=== PATIENT | male | born 1995 | race American Indian/Alaskan Native ===

== ENCOUNTER 2019-09-16 19:58 | Emergency (ER) | payer MEDICAID, OTHER ==
--- NOTE | 2019-09-16 20:32 | EDM.PDOC ---
ED HPI GENERAL MEDICAL PROBLEM - General Chief Complaint: Upper Extremity Injury/Pain Stated Complaint: INJURED FINGER/RIGHT HAND Time Seen by Provider: 09/16/19 20:20 Source of Information: Reports: Patient, RN History Limitations: Reports: No Limitations - History of Present Illness INITIAL COMMENTS - FREE TEXT/NARRATIVE: 23 yo NA male presents with a R 4th finger injury from a few days ago. Has not been seen yet in the clinic. Comes now to the ER because "it is not getting better". No self tx. Onset: Sudden Onset Date: 09/13/19 Duration: Day(s): (3), Constant Location: Reports: Upper Extremity, Right Quality: Reports: Ache Severity: Moderate Improves with: Reports: None Worsens with: Reports: Movement Context: Reports: Trauma Associated Symptoms: Reports: No Other Symptoms Treatments [employer]: Reports: Other (see below) (none) Right Finger-Ring Pain Score (Numeric/FACES): 8 - Related Data Allergies Allergy/AdvReac Type Severity Reaction Status Date / Time No Known Allergies Allergy Verified 09/16/19 20:10 Home Meds: Home Meds NK [No Known Home Meds] 09/16/19 [History] Past Medical History Musculoskeletal History: Reports: Fracture Social & Family History - Tobacco Use Smoking Status *Q: Current Every Day Smoker Years of Tobacco use: 5 Packs/Tins Daily: 0.5 - Recreational Drug Use Recreational Drug Use: No Review of Systems - Review of Systems Review Of Systems: See Below Constitutional: Reports: No Symptoms Musculoskeletal: Reports: Hand Pain (R 4th finger) Skin: Reports: Bruising (R 4th finger) Neurological: Reports: No Symptoms ED EXAM, GENERAL - Physical Exam Exam: See Below Exam Limited By: No Limitations General Appearance: Alert, WD/WN, No Apparent Distress Extremities: Pedal Edema (R 4th finger is swollen), Limited Range of Motion ( due to pain and swelling of the R 4th finger). No: Non-Tender, No Pedal Edema, Increased Warmth, Redness Neurological: Alert, Oriented, Normal Cognition, No Motor/Sensory Deficits Psychiatric: Normal Affect, Normal Mood Skin Exam: Warm, Dry, Intact, Ecchymosis (R 4th finger) ED TRAUMA EXTREMITY PROCEDURES - Splinting Right 4th Digit Splint Site: R 4th finger Pre-Procedure NV Status: Normal Post-Procedure NV Status: Normal Splint Material: Metal Splint Design: Volar Applied & Form Fitted By: Provider Provider Post-Splint Application NV Check: NV Status Normal, Good Position Complications: No Course - Vital Signs Last Recorded V/S: Last Vital Signs Temp 36.7 C 09/16/19 20:12 Pulse 87 09/16/19 20:12 Resp 16 09/16/19 20:12 BP 133/60 09/16/19 20:12 Pulse Ox 98 09/16/19 20:12 - Orders/Labs/Meds Orders: Active Orders 24 hr Category Date Time Status Fingers Fourth Digit Rt F8 [CR] Stat Exams 09/16/19 20:27 Ordered - Radiology Interpretation Free Text/Narrative:: R 4th finger X-ray-Fx of the prox phalanx Departure - Departure Time of Disposition: 20:50 Disposition: Home, Self-Care 01 Condition: Fair Clinical Impression: Finger fracture, right Qualifiers: Encounter type: initial encounter Finger: ring finger Fracture type: closed Phalanx: proximal Fracture alignment: displaced Qualified Code(s): S62.614A - Displaced fracture of proximal phalanx of right ring finger, initial encounter for closed fracture - Discharge Information *PRESCRIPTION DRUG MONITORING PROGRAM REVIEWED*: No *COPY OF PRESCRIPTION DRUG MONITORING REPORT IN PATIENT ELLI: No Instructions: Finger Fracture, Adult, [id number] Referrals: PCP,None [Primary Care Provider] - Forms: ED Department Discharge Additional Instructions: Take acetaminophen 1000 mg every 6 hrs as needed for pain relief. Add ibuprofen 400 mg every 6 hrs for added relief. Keep elevated to reduce swelling. Follow up with Dr. Randall for further care, someone will call you with an appt to see him. Leave the splint on at all times. Sepsis Event Note - Evaluation Sepsis Screening Result: No Definite Risk - Focused Exam Vital Signs: Vital Signs Temp Pulse Resp BP Pulse Ox 09/16/19 20:12 36.7 C 87 16 133/60 98 09/16/19 20:09 36.7 C 87 16 133/60 98 Date Exam was Performed: 09/16/19 Time Exam was Performed: 20:38 - My Orders Last 24 Hours: My Active Orders 09/16/19 20:27 Fingers Fourth Digit Rt F8 [CR] Stat - Assessment/Plan Last 24 Hours: My Active Orders 09/16/19 20:27 Fingers Fourth Digit Rt F8 [CR] Stat
--- NOTE | 2019-09-17 10:02 | CR ---
Fingers Fourth Digit Rt F8 CLINICAL HISTORY: Injury FINDINGS: There is a displaced comminuted fracture of the midportion of the fourth proximal phalanx with dorsal angulation of the distal aspect. IMPRESSION: Angulated comminuted fracture of the fourth proximal phalanx
== END 2019-09-16 21:12 | disposition home or self-care (01) ==
LOC: JP.ED 19:58
DX: S62.614A Displaced fracture of proximal phalanx of right ring finger, initial encounter for closed fracture (principal); F17.210 Nicotine dependence, cigarettes, uncomplicated; X58.XXXA Exposure to other specified factors, initial encounter
CPT/HCPCS: 29130; 73140-26-F8; 73140-F8; 99283; 99283-25

== ENCOUNTER 2019-09-19 19:18 | Emergency (ER) | payer MEDICAID, OTHER ==
[2019-09-19] MEDS ORDERED: Ketorolac 60 MG/2 ML SDV IM ONE (20:05)
--- NOTE | 2019-09-19 20:28 | EDM.PDOC ---
ED HPI GENERAL MEDICAL PROBLEM - General Chief Complaint: Upper Extremity Injury/Pain Stated Complaint: INJURED RIGHT HAND Time Seen by Provider: 09/19/19 20:10 Source of Information: Reports: Patient History Limitations: Reports: No Limitations - History of Present Illness INITIAL COMMENTS - FREE TEXT/NARRATIVE: 23-year-old male with a finger injury. He was seen 3 days ago and diagnosed with a fracture of his ring finger on the right hand, he had an orthopedic appointment this morning but missed it. Last night he was so intoxicated he does not remember what happened but today his index finger is swollen, bruised, reddened, with a scrape across the dorsal aspect of the PIP joint and significant pain. Onset: Unknown/Unsure (Woke up with the injury this morning) Location: Reports: Upper Extremity, Right Associated Symptoms: Reports: No Other Symptoms Right Hand Pain Score (Numeric/FACES): 8 - Related Data Allergies Allergy/AdvReac Type Severity Reaction Status Date / Time No Known Allergies Allergy Verified 09/19/19 19:53 Home Meds: Home Meds NK [No Known Home Meds] 09/16/19 [History] Past Medical History Musculoskeletal History: Reports: Fracture Social & Family History - Tobacco Use Smoking Status *Q: Light Tobacco Smoker Years of Tobacco use: 5 Packs/Tins Daily: 0.5 - Caffeine Use Caffeine Use: Reports: None - Recreational Drug Use Recreational Drug Use: No Review of Systems - Review of Systems Review Of Systems: See Below Constitutional: Denies: Fever Respiratory: Reports: No Symptoms GI/Abdominal: Reports: No Symptoms Genitourinary: Reports: No Symptoms Skin: Reports: Bruising (Bruising and erythema is present around the right finger extending dorsally over the MP joint) ED EXAM, GENERAL - Physical Exam Exam: See Below Exam Limited By: No Limitations General Appearance: Alert, No Apparent Distress (Looks uncomfortable but not distressed) Head: Atraumatic Respiratory/Chest: No Respiratory Distress Extremities: Other (Exam is otherwise limited to the right hand. There is some bruising and slight deformity of the ring finger which has been present for the past 4 days. His index finger now is swollen, bruised with some underlying redness and a transverse superficial shallow laceration across the PIP joint. There is exquisite tenderness with any range of motion.) Course - Vital Signs Last Recorded V/S: Last Vital Signs Temp 99.1 F 09/19/19 19:37 Pulse 94 09/19/19 19:37 Resp 16 09/19/19 19:37 BP 159/81 H 09/19/19 19:37 Pulse Ox 98 09/19/19 19:37 - Orders/Labs/Meds Orders: Active Orders 24 hr Category Date Time Status Fingers Second Digit Rt F6 [CR] Stat Exams 09/19/19 20:08 Taken CULTURE WOUND + SMEAR [RM] Stat Lab 09/19/19 20:49 Results Meds: Medications Discontinued Medications Generic Name Dose Route Start Last Admin Trade Name Miguelq PRN Reason Stop Dose Admin Ceftazidime 1 gm/ Sodium 50 mls @ 100 mls/hr 09/19/19 20:38 09/19/19 20:58 Chloride IV 09/19/19 21:07 Not Given ONETIME ONE Ketorolac Tromethamine 60 mg 09/19/19 20:05 09/19/19 20:15 Toradol IM 09/19/19 20:06 60 mg ONETIME ONE Administration - Re-Assessments/Exams Free Text/Narrative Re-Assessment/Exam: 09/19/19 20:28 Patient was given 60 mg of Toradol IM and then sent back for a finger x-ray. 09/19/19 20:48 Finger x-ray returned negative for fracture. I asked the patient to clarify his injury as this looks to be a pretty significant infection for just 12 hours and I asked him if he possibly could have had a human bite to that knuckle. He said no but then he admitted that it has been hurting for a couple of days, not just since last night. He obviously has a significant cellulitis developing in the finger, and there is a small amount of serosanguineous drainage coming from the cut. I took a culture from the wound, and an IV will be started so he can get 1 g of Fortaz tonight and hopefully another gram of Fortaz tomorrow morning. We can set him up to see orthopedics when he returns. While IV antibiotics were being prepared, I went into the discussed with the patient the importance of returning tomorrow morning for his IV antibiotics, and if he is unable I will provide him with oral antibiotics to take in case he does not make it. He again asked for something for pain, I explained I just gave him a shot of Toradol and I can give him some additional doses but I do not feel comfortable with narcotics as he is drinking so much that he cannot remember day-to-day what is happening and full dose Toradol along with acetaminophen has been found to be just as beneficial. He then suddenly just stood up and walked out. I tried to tell him on his way out that he may lose his finger if he does not receive antibiotics and he had no interest in talking to me anymore. Departure - Departure Time of Disposition: 20:59 Disposition: Against Medical Advice 07 Clinical Impression: Cellulitis of right index finger - Discharge Information Referrals: PCP,None [Primary Care Provider] - Forms: ED Department Discharge Care Plan Goals: Patient eloped without treatment, hopefully he will return or get medical attention somewhere else. Sepsis Event Note - Focused Exam Vital Signs: Vital Signs Temp Pulse Resp BP Pulse Ox 09/19/19 19:37 99.1 F 94 16 159/81 H 98 Date Exam was Performed: 09/19/19 Time Exam was Performed: 21:37 - My Orders Last 24 Hours: My Active Orders 09/19/19 20:08 Fingers Second Digit Rt F6 [CR] Stat 09/19/19 20:49 CULTURE WOUND + SMEAR [RM] Stat - Assessment/Plan Last 24 Hours: My Active Orders 09/19/19 20:08 Fingers Second Digit Rt F6 [CR] Stat 09/19/19 20:49 CULTURE WOUND + SMEAR [RM] Stat
--- NOTE | 2019-09-20 09:55 | CR ---
Fingers Second Digit Rt F6 CLINICAL HISTORY: Injury FINDINGS: There is no fracture or dislocation. There is generalized soft tissue swelling. Articular surfaces are smooth Impression: Soft tissue swelling No fracture
== END 2019-09-19 21:01 | disposition left against medical advice (07) ==
LOC: JP.ED 19:18
DX: L03.011 Cellulitis of right finger (principal); F17.210 Nicotine dependence, cigarettes, uncomplicated
CPT/HCPCS: 73140; 87070; 87077; 87205; 96372; 99284; J1885; 99283